=== PATIENT | female | born 1935 | race Caucasian/White ===

== ENCOUNTER → 2017-02-08 | Outpatient (CLI) | payer MEDICARE, OTHER ==
--- NOTE | ~2017-02-08 | ESTC ---
Cardiac Perfusion Imaging Demographics Patient Name THERESA Shipman Gender Female Patient Number [id number] Race Visit Number [id number] [place] [id number] Room Number Accession Number [id number] Height 63 inches Date of 1935 Weight 159 pounds A Interpreting Ana Roldan Date of study 02/08/2017 Physician MD Supervising /TONYP Natalia HERNANDES Technologist Fabi Palma Ordering Physician Jonelle Shipman MD licensed veterinary technician Stress ECG Reading Natalia Gurrola APRN Nurse Mounika Julien RN Physician The procedure was explained in detail to the patient. Risks, complications and alternative treatments were reviewed. Written consent was obtained. Medications Reviewed with Patient prior to Procedure. Procedure Admit Source:Other. Procedure Type: Nuclear Stress Test:Exercise, Cardiolite Stress Test Procedure Start time: 02/08/2017 00:00 Indications: Shortness of Breath with Exertion. Risk Factors The patient risk factors include:hypercholesterolemia, hypertension and dyslipidemia. Conclusions Summary Perfusion Images: The overall quality of the study is poor, due to gastrointestinal tracer uptake. Left ventricular cavity is noted to be normal on the stress and normal on the rest images. There is no evidence of abnormal lung activity. The right ventricle is not visualized an cannot be assessed. Impression ECG portion of stress test is non diagnostic by diagnostic criteria due to underlying paced ventricular beats. Myocardial perfusion imaging is essentially normal without any significant perfusion defects suggestive of ischemia/infarct. Overall left ventricular systolic function was normal. Calculated LVEF is 60% and TID ratio is 1.02. There are no previous studies for comparison. Stress Protocols Resting ECG Ventricular paced rhythm. Pre-stress physical exam: Patient assessed by Renetta BAÑUELOS prior to testing. Chest - CTA Cardio - RRR, S1, S2 Stress Protocol:Exercise Predicted HR: 137 bpm HR response: Appropriate BP response: Appropriate Reason for termination:Target heart rate ECG Findings Indeterminate ECG due to baseline abnormalities. Arrhythmias Occasional PVC's at peak exercise. Symptoms Shortness of breath. Complications Procedure complication: None. Stress Interpretation Patient walked for 4.5 minutes through 2 stages of SIOMARA protocol. Appropriate hemodynamic response to exercise. No significant ST-T wave changes with exercise from baseline. EKG portion is indeterminate for ischemia by diagnostic criteria due to baseline abnormalities. The Boles Treadmill score was 4.5 .This corresponds to a moderate risk stress test. Will correlate with nuclear images. Imaging Results Applied corrections - Motion correction applied High risk findings Summed scores - Summed stress score: 18 - Summed rest score: 10 - Summed difference score: 8 Stress ejection Ejection fraction:60 % EDV :77 ml ESV :31 ml Stroke volume :46 ml LV mass :124 gr Imaging Protocols Rest Stress Isotope:Tc99m Sestamibi IV Isotope: Tc99m Sestamibi IV Isotope dose:11.6 mCi Isotope dose:34 mCi Date:02/08/2017 07:26 Date:02/08/2017 09:10 Technique: SPECT Technique: Gated Supine SPECT Supine Scan Time:45-60 minutes post Scan Time:45-60 minutes post injection injection Medical History Admission Data Admission date: 02/08/2017 Admission Time: 07:00 Hospital Status: Outpatient. Signatures dtt: KEYSHA COMER dtd: 02/08/17 0000 Physician Self Edit
== END | disposition disaster alternative care site (69) ==
LOC: GRAD 07:00
DX: R06.00 Dyspnea, unspecified (principal)
CPT/HCPCS: A9500